=== PATIENT | female | born 1985 | race Two or more races ===

== ENCOUNTER 2016-11-25 18:13 | Emergency (ER) | payer OTHER ==
[2016-11-25 18:21] VITALS: RESP 16; TEMP 97; O2SAT 100
[2016-11-25 19:06] LABS: BASOPHILS % (AUTO) 1 % (0-3); EOSINOPHILS % (AUTO) 2 % (0-9); HEMATOCRIT 34 % (35-47); MEAN CORPUSCULAR HGB CONC 34.3 gm/dl (32.0-36.0); MONOCYTES % (AUTO) 7.8 % (0-12); NEUTROPHILS % (AUTO) 58.4 % (37-80)
[2016-11-25 19:08] LABS: MEAN CORPUSCULAR VOLUME 71 fL (81-99)
[2016-11-25 19:18] LABS: ANISOCYTOSIS SLIGHT AMT
[2016-11-25 20:31] VITALS: BP 96/68; PULSE 67
== END 2016-11-25 20:17 | disposition home or self-care (01) | DRG 782 ==
LOC: ED 18:13
DX: O26.851 Spotting complicating pregnancy, first trimester (principal); Z3A.11 11 weeks gestation of pregnancy
CPT/HCPCS: 36415; 85025; 86900; 86901; 99284

== ENCOUNTER 2018-07-16 08:05 | Day surgery (SDC) | payer OTHER ==
[2018-07-16] MEDS ORDERED: LIDOCAINE HCL 2% MPF 10 ML SOL ONE ×2 (08:09→08:12)
[2018-07-16] MEDS ORDERED: MIDAZOLAM 2 MG/2 ML SOL ONE (08:16)
[2018-07-16] MEDS ORDERED: PROPOFOL 500 MG/50 ML EMU IV ONE (08:16)
[2018-07-16] MEDS ORDERED: ONDANSETRON HCL 4 MG/2 ML SOL ONE (08:16)
[2018-07-16] MEDS ORDERED: FENTANYL 100MCG/2ML SOL ONE (08:16)
[2018-07-16] MEDS ORDERED: METOCLOPRAMIDE HYDROCHLORIDE 5 MG/ML SOL ONE (08:16)
[2018-07-16] MEDS ORDERED: DEXAMETHASONE 20 MG/5 ML (4 MG/ML SOL) ONE (08:16)
[2018-07-16 10:06] VITALS: BP 92/52; PULSE 67; RESP 16; TEMP 96.8; O2SAT 98
== END 2018-07-16 10:43 | disposition home or self-care (01) | DRG 558 ==
LOC: SURG 08:05
PROVIDERS: ATTEND Orthopaedic Surgery
DX: M65.331 Trigger finger, right middle finger (principal)
CPT/HCPCS: 84703; J1100; J2250; J2405; J2765; J3010; A6402; J2704